=== PATIENT | male | born 1970 | race African-American/Black ===

== ENCOUNTER 2022-08-01 17:47 | Emergency (ER) | payer MEDICARE, MEDICAID ==
[~2022-08-01] VITALS: Ht 177.8 cm; Wt 133.3 kg
[~2022-08-01 17:47] MED LIST: FLEXERIL OR; NAPROSYN500 MG OR
[2022-08-01 17:52] VITALS: BP 148/83
[2022-08-01 18:00] VITALS: BP 158/91
[2022-08-01] MEDS ORDERED: LISINOPRIL2.5 MG PO (18:03)
[2022-08-01 19:19] VITALS: BP 158/91
== END 2022-08-01 19:24 | disposition home or self-care (01) ==
LOC: ED 17:47
DX: T54.93XA Toxic effect of unspecified corrosive substance, assault, initial encounter (principal); H11.89 Other specified disorders of conjunctiva; Y92.009 Unspecified place in unspecified non-institutional (private) residence as the place of occurrence of the external cause; H54.62 Unqualified visual loss, left eye, normal vision right eye